=== PATIENT | female | born 1940 | race Caucasian/White ===

== ENCOUNTER 2024-04-05 15:10 | Inpatient (IN) ==
[2024-04-05 16:02] LABS: Basophils # (Auto) 0.01 K/mcL (0.00-0.30); Basophils % (Auto) 0.1 % (0.0-2.0); Eosinophils # (Auto) 0.15 K/mcL (0.00-0.70); Eosinophils % (Auto) 1.1 % (0.0-7.0); Hematocrit 36.1 % (34.1-44.9); Hemoglobin 11.5 g/dL (11.2-15.7); Lymphocytes # (Auto) 1.19 K/mcL (1.50-4.80); Mean Cell Volume 96.5 fL (80.0-100.0); Mean Corpuscular HGB Conc 31.9 g/dL (31.0-36.0); Mean Platelet Volume 9.8 fL (8.8-12.5); Monocytes # (Auto) 0.83 K/mcL (0.10-0.90); Monocytes % (Auto) 6.3 % (1.0-12.0); Platelet Count 403 K/mcL (140-440); RBC 3.74 M/mcL (3.59-5.38); WBC 13.3 K/mcL (4.5-11.0)
[2024-04-05 16:37] LABS: ALT/SGPT 15 U/L (<40); AST/SGOT 28 U/L (<32); Albumin 3.1 gm/dL (3.2-5.2); Albumin/Globulin Ratio 1.1 (1.0-2.3); Alkaline Phosphatase 138 U/L (39-117); Bilirubin,Total 0.3 mg/dL (0.1-1.0); Blood Urea Nitrogen 24 mg/dL (8-23); Calcium 9.5 mg/dL (8.6-10.4); Carbon Dioxide 27 mmol/L (22-30); Chloride 102 mmol/L (96-108); Globulin 2.7 gm/dL (2.2-3.7); Glomerular Filtration Rate 88; Glucose 119 mg/dL (70-105); Potassium 4.5 mmol/L (3.3-5.1); Sodium 138 mmol/L (133-145)
[2024-04-05 17:34] LABS: Appearance,Urine Clear (Clear); Bacteria,Urine 0 /hpf (0); Bilirubin,Urine Negative (Negative); Color,Urine Yellow; Glucose,Urine (UA) Negative (Negative); Ketones,Urine Negative (Negative); Leukocyte Esterase,Urine Trace /uL (Negative); Nitrate,Urine Negative (Negative); PH,Urine 5.5 (5.0-9.0); Protein,Urine Trace mg/dL (Negative); Specific Gravity,Urine 1.025 (1.000-1.035); Urine Blood Trace-intact ery/mcL (Negative); Urine RBC 1 /hpf (0-3); Urine Squamous Epithelial Cell 1 /hpf (0-4); Urine WBC 18 /hpf (0-4); Urobilinogen,Urine Normal
[2024-04-05 19:13] LABS: Thyroid Stimulating Hormone 9.42 uIU/mL (0.27-5.01)
[2024-04-05 19:25] LABS: C-Reactive Protein 9.96 mg/dL (0.03-0.80)
[2024-04-05] MEDS: ACETAMINOPHEN 1,000 MG/100 ML BAG IV ONE (20:06)
[2024-04-05] MEDS ORDERED: SENNOSIDES 1 TABLET PO PRN (20:57)
[2024-04-05] MEDS ORDERED: oxyCODONE IR 5 MG TABLET PO PRN (20:57)
[2024-04-05] MEDS: 0.9 % SODIUM CHLORIDE 10 ML SYRINGE IV SCH (20:58)
[2024-04-05] MEDS: ACETAMINOPHEN 1,000 MG/100 ML BAG IV SCH (20:58)
[2024-04-05] MEDS: IBUPROFEN 600 MG TABLET PO PRN (21:56)
[2024-04-06 06:12] LABS: Basophils # (Auto) 0.02 K/mcL (0.00-0.30); Basophils % (Auto) 0.1 % (0.0-2.0); Eosinophils # (Auto) 0.05 K/mcL (0.00-0.70); Eosinophils % (Auto) 0.3 % (0.0-7.0); Hematocrit 37.5 % (34.1-44.9); Hemoglobin 12.3 g/dL (11.2-15.7); Lymphocytes % (Auto) 5.4 % (15.5-49.0); Mean Cell Volume 95.4 fL (80.0-100.0); Mean Corpuscular HGB Conc 32.8 g/dL (31.0-36.0); Mean Platelet Volume 9.8 fL (8.8-12.5); Monocytes # (Auto) 0.71 K/mcL (0.10-0.90); Monocytes % (Auto) 4.8 % (1.0-12.0); Neutrophils % (Auto) 87.7 % (38.0-78.0); Platelet Count 392 K/mcL (140-440); RBC 3.93 M/mcL (3.59-5.38); Red Cell Distribution Width 13.7 % (11.5-14.5); WBC 14.8 K/mcL (4.5-11.0)
[2024-04-06 06:39] LABS: ALT/SGPT 14 U/L (<40); AST/SGOT 31 U/L (<32); Albumin 2.7 gm/dL (3.2-5.2); Alkaline Phosphatase 145 U/L (39-117); Bilirubin,Direct < 0.2 mg/dL (0-0.3); Bilirubin,Total 0.4 mg/dL (0.1-1.0); Blood Urea Nitrogen 19 mg/dL (8-23); Calcium 9.5 mg/dL (8.6-10.4); Carbon Dioxide 26 mmol/L (22-30); Chloride 99 mmol/L (96-108); Globulin 2.8 gm/dL (2.2-3.7); Glomerular Filtration Rate 88; Glucose 114 mg/dL (70-105); Lactate Dehydrogenase 265 U/L (135-225); Phosphorous 2.8 mg/dL (2.5-4.5); Potassium 4.4 mmol/L (3.3-5.1); Sodium 134 mmol/L (133-145); Triglycerides 120 mg/dL (<150); Uric Acid 2.9 mg/dL (2.5-8.0)
[2024-04-06] MEDS: MULTIVIT,THER IRON,CA,FA & MIN 1 TABLET PO SCH (09:41)
[2024-04-06] MEDS: LISINOPRIL 20 MG TABLET PO SCH (09:41)
[2024-04-06] MEDS: LEVOTHYROXINE SODIUM 112 MCG TABLET PO SCH (09:41)
[2024-04-06] MEDS: ENOXAPARIN 40 MG/0.4 ML SYRINGE SQ SCH (09:42)
[2024-04-06] MEDS: MIRTAZAPINE 15 MG TABLET PO SCH (09:42)
[2024-04-06 11:33] LABS: Free T4 (Free Thyroxine) 1.15 ng/dL (0.93-1.70)
[2024-04-06] MEDS: LORazepam 1 MG TABLET PO PRN (12:46)
[2024-04-06] MEDS ORDERED: GADOBENATE DIMEGLUMINE 15 ML/VIAL IV ONE (13:57)
[2024-04-06] MEDS: oxyCODONE IR 5 MG TABLET PO PRN (20:10)
[2024-04-07 08:26] LABS: Basophils # (Auto) 0.02 K/mcL (0.00-0.30); Basophils % (Auto) 0.2 % (0.0-2.0); Eosinophils # (Auto) 0.12 K/mcL (0.00-0.70); Eosinophils % (Auto) 0.9 % (0.0-7.0); Hemoglobin 12.7 g/dL (11.2-15.7); Lymphocytes # (Auto) 0.78 K/mcL (1.50-4.80); Lymphocytes % (Auto) 6.1 % (15.5-49.0); Mean Cell Volume 95.1 fL (80.0-100.0); Mean Corpuscular HGB Conc 32.6 g/dL (31.0-36.0); Mean Platelet Volume 9.7 fL (8.8-12.5); Monocytes # (Auto) 0.55 K/mcL (0.10-0.90); Monocytes % (Auto) 4.3 % (1.0-12.0); Neutrophils % (Auto) 84.1 % (38.0-78.0); Platelet Count 436 K/mcL (140-440); Red Cell Distribution Width 13.6 % (11.5-14.5); WBC 12.8 K/mcL (4.5-11.0)
[2024-04-07 08:47] LABS: ALT/SGPT 15 U/L (<40); AST/SGOT 27 U/L (<32); Albumin 2.7 gm/dL (3.2-5.2); Albumin/Globulin Ratio 1.1 (1.0-2.3); Alkaline Phosphatase 142 U/L (39-117); Bilirubin,Direct < 0.2 mg/dL (0-0.3); Bilirubin,Total 0.3 mg/dL (0.1-1.0); Blood Urea Nitrogen 14 mg/dL (8-23); Calcium 9.3 mg/dL (8.6-10.4); Carbon Dioxide 29 mmol/L (22-30); Chloride 99 mmol/L (96-108); Globulin 2.5 gm/dL (2.2-3.7); Glomerular Filtration Rate 88; Glucose 93 mg/dL (70-105); Lactate Dehydrogenase 224 U/L (135-225); Phosphorous 2.6 mg/dL (2.5-4.5); Potassium 3.8 mmol/L (3.3-5.1); Sodium 135 mmol/L (133-145); Triglycerides 158 mg/dL (<150); Uric Acid 3.1 mg/dL (2.5-8.0)
[2024-04-07] MEDS: ONDANSETRON 4 MG/2 ML VIAL IV PRN (13:00)
[2024-04-07] MEDS: oxyCODONE IR 5 MG TABLET PO SCH (21:12)
[2024-04-08] MEDS: CHOLESTYRAMINE/ASPARTAME 4 GM POWD.PACK PO SCH (11:20)
[2024-04-08] MEDS: oxyCODONE IR 5 MG TABLET PO PRN (16:26)
[2024-04-09 06:00] LABS: Basophils # (Auto) 0.04 K/mcL (0.00-0.30); Basophils % (Auto) 0.3 % (0.0-2.0); Eosinophils # (Auto) 0.27 K/mcL (0.00-0.70); Eosinophils % (Auto) 2.2 % (0.0-7.0); Hematocrit 36.9 % (34.1-44.9); Hemoglobin 11.7 g/dL (11.2-15.7); Lymphocytes # (Auto) 1.33 K/mcL (1.50-4.80); Lymphocytes % (Auto) 10.6 % (15.5-49.0); Mean Cell Volume 96.9 fL (80.0-100.0); Mean Corpuscular HGB Conc 31.7 g/dL (31.0-36.0); Mean Platelet Volume 9.6 fL (8.8-12.5); Monocytes # (Auto) 0.67 K/mcL (0.10-0.90); Monocytes % (Auto) 5.4 % (1.0-12.0); Platelet Count 443 K/mcL (140-440); RBC 3.81 M/mcL (3.59-5.38); WBC 12.5 K/mcL (4.5-11.0)
[2024-04-09 06:23] LABS: ALT/SGPT 26 U/L (<40); AST/SGOT 52 U/L (<32); Albumin 2.8 gm/dL (3.2-5.2); Albumin/Globulin Ratio 1.2 (1.0-2.3); Alkaline Phosphatase 174 U/L (39-117); Bilirubin,Direct < 0.2 mg/dL (0-0.3); Bilirubin,Total 0.2 mg/dL (0.1-1.0); Blood Urea Nitrogen 21 mg/dL (8-23); Calcium 9.3 mg/dL (8.6-10.4); Carbon Dioxide 29 mmol/L (22-30); Chloride 103 mmol/L (96-108); Globulin 2.3 gm/dL (2.2-3.7); Glomerular Filtration Rate 88; Glucose 88 mg/dL (70-105); Lactate Dehydrogenase 478 U/L (135-225); Phosphorous 2.5 mg/dL (2.5-4.5); Potassium 4.4 mmol/L (3.3-5.1); Sodium 139 mmol/L (133-145); Triglycerides 114 mg/dL (<150)
[2024-04-09] MEDS: LEVOTHYROXINE SODIUM 112 MCG TABLET PO SCH (07:54)
[2024-04-10] MEDS ORDERED: oxyCODONE IR 5 MG TABLET PO PRN (15:18)
[2024-04-10] MEDS: oxyCODONE IR 5 MG TABLET PO ONE (15:28)
[2024-04-11] MEDS: LEVOTHYROXINE SODIUM 112 MCG TABLET PO SCH (05:37)
[2024-04-11 06:56] LABS: Basophils # (Auto) 0.05 K/mcL (0.00-0.30); Basophils % (Auto) 0.4 % (0.0-2.0); Eosinophils # (Auto) 0.23 K/mcL (0.00-0.70); Eosinophils % (Auto) 1.9 % (0.0-7.0); Hematocrit 36.5 % (34.1-44.9); Hemoglobin 11.8 g/dL (11.2-15.7); Lymphocytes # (Auto) 1.07 K/mcL (1.50-4.80); Lymphocytes % (Auto) 8.8 % (15.5-49.0); Mean Cell Volume 97.3 fL (80.0-100.0); Mean Corpuscular HGB Conc 32.3 g/dL (31.0-36.0); Mean Platelet Volume 9.6 fL (8.8-12.5); Monocytes # (Auto) 0.63 K/mcL (0.10-0.90); Monocytes % (Auto) 5.2 % (1.0-12.0); Neutrophils % (Auto) 79.2 % (38.0-78.0); Platelet Count 480 K/mcL (140-440); RBC 3.75 M/mcL (3.59-5.38); Red Cell Distribution Width 14.1 % (11.5-14.5); WBC 12.1 K/mcL (4.5-11.0)
[2024-04-11] MEDS: CHOLESTYRAMINE/ASPARTAME 4 GM POWD.PACK PO SCH (09:18)
[2024-04-11] MEDS: MULTIVIT,THER IRON,CA,FA & MIN 1 TABLET PO SCH (12:22)
== END 2024-04-11 14:58 | DRG 91 ==
LOC: ED 15:10 → MEDSUR 20:37
PROVIDERS: ADMIT Internal Medicine; ATTEND Internal Medicine

== ENCOUNTER 2024-10-30 10:53 | Inpatient (IN) ==
[2024-10-30] MEDS: LIDOCAINE 4% TOP PATCH TOPICAL ONE (11:59)
[2024-10-30] MEDS: morphine 2 MG/ML VIAL IV ONE ×2 (12:12→12:52)
[2024-10-30] MEDS: 0.9 % SODIUM CHLORIDE 1,000 ML IV ONE (12:14)
[2024-10-30] MEDS: KETOROLAC 15 MG/ML VIAL IV ONE (12:52)
[2024-10-30 13:18] LABS: Basophils # (Auto) 0.02 K/mcL (0.00-0.30); Basophils % (Auto) 0.3 % (0.0-2.0); Eosinophils # (Auto) 0.04 K/mcL (0.00-0.70); Eosinophils % (Auto) 0.6 % (0.0-7.0); Hematocrit 45.3 % (34.1-44.9); Hemoglobin 14.4 g/dL (11.2-15.7); Lymphocytes # (Auto) 0.59 K/mcL (1.50-4.80); Lymphocytes % (Auto) 8.5 % (15.5-49.0); Mean Cell Volume 98.7 fL (80.0-100.0); Mean Corpuscular HGB Conc 31.8 g/dL (31.0-36.0); Mean Platelet Volume 10.9 fL (8.8-12.5); Monocytes # (Auto) 0.55 K/mcL (0.10-0.90); Monocytes % (Auto) 7.9 % (1.0-12.0); Neutrophils % (Auto) 82.6 % (38.0-78.0); Platelet Count 228 K/mcL (140-440); RBC 4.59 M/mcL (3.59-5.38); Red Cell Distribution Width 15.6 % (11.5-14.5)
[2024-10-30] MEDS: HYDROmorphone 0.5 MG/0.5 ML SYRINGE IV ONE (13:53)
[2024-10-30 14:31] LABS: Blood Urea Nitrogen 20 mg/dL (8-23); Calcium 9.2 mg/dL (8.6-10.4); Carbon Dioxide 26 mmol/L (22-30); Chloride 105 mmol/L (96-108); Glomerular Filtration Rate 88; Glucose 90 mg/dL (70-105); Potassium 3.6 mmol/L (3.3-5.1); Sodium 142 mmol/L (133-145)
[2024-10-30] MEDS ORDERED: fentaNYL 100 MCG/2 ML VIAL ONE (14:49)
[2024-10-30] MEDS ORDERED: PROPOFOL 200 MG/20 ML VIAL IV ONE (14:49)
[2024-10-30] MEDS ORDERED: ONDANSETRON 4 MG/2 ML VIAL ONE (15:02)
[2024-10-30] MEDS ORDERED: DEXAMETHASONE 10 MG/ML VIAL ONE (15:02)
[2024-10-30] MEDS ORDERED: GLYCOPYRROLATE 0.2 MG/ML VIAL IV ONE (15:02)
[2024-10-30] MEDS: ceFAZolin 2 GM in DEXTROSE 5% IN WATER 50 ML IV SCH (16:00)
[2024-10-30] MEDS ORDERED: TRANEXAMIC ACID 1,000 MG/10 ML VIAL ONE (16:03)
[2024-10-30] MEDS ORDERED: ROCURONIUM 10 MG/ML ML IV ONE (16:03)
[2024-10-30] MEDS ORDERED: SUGAMMADEX SODIUM 200 MG/2 ML VIAL IV ONE (16:03)
[2024-10-30] MEDS ORDERED: PHENYLephrine 1 MG/10 ML SYRINGE (ANEST) ONE (16:13)
[2024-10-30] MEDS ORDERED: MAGNESIUM SULFATE 2 GM/50 ML BAG IV ONE (16:32)
[2024-10-30] MEDS: VANCOMYCIN 1 GM VIAL TOPICAL SCH (16:56)
[2024-10-30 17:00] LABS: INR 1.1 (0.9-1.1); Prothrombin Time 15.5 sec (11.9-14.5)
[2024-10-30] MEDS ORDERED: BENZOCAINE/MENTHOL 1 LOZENGE PO PRN (17:17)
[2024-10-30] MEDS: ROPIVACAINE HCL/PF 20 ML VIAL IJ ONE (17:19)
[2024-10-30] MEDS ORDERED: ceFAZolin 2 GM in DEXTROSE 5% IN WATER 50 ML IV SCH (17:30)
[2024-10-30] MEDS ORDERED: oxyCODONE IR 5 MG TABLET PO PRN (18:56)
[2024-10-30] MEDS ORDERED: NON FORMULARY MEDICATION 1 DOSE MISCELL (Banana Flakes-T-Galactooligos. [Banatrol Plus] po PO PRN (18:56)
[2024-10-30] MEDS ORDERED: ONDANSETRON 4 MG/2 ML VIAL IV PRN (18:56)
[2024-10-30] MEDS: LACTATED RINGERS 1,000 ML IV SCH (19:00)
[2024-10-30] MEDS: SENNOSIDES 1 TABLET PO SCH (20:43)
[2024-10-30] MEDS: morphine 4 MG/ML VIAL IV PRN (20:44)
[2024-10-30] MEDS: MELATONIN 3 MG TABLET PO SCH (20:46)
[2024-10-31 00:51] LABS: Appearance,Urine Clear (Clear); Bilirubin,Urine Negative (Negative); Calcium Oxalate Crystals,Urine Few /hpf; Color,Urine Yellow; Glucose,Urine (UA) Negative (Negative); Ketones,Urine Negative (Negative); Leukocyte Esterase,Urine Negative /uL (Negative); Nitrate,Urine Negative (Negative); PH,Urine 5.5 (5.0-9.0); Protein,Urine 30 mg/dL (Negative); Specific Gravity,Urine 1.025 (1.000-1.035); Urine Blood Negative ery/mcL (Negative); Urine Hyaline Cast 4 /lph (0-2); Urine RBC 12 /hpf (0-3); Urine Squamous Epithelial Cell 4 /hpf (0-4); Urine WBC 0 /hpf (0-4); Urobilinogen,Urine Normal
[2024-10-31] MEDS: ceFAZolin 1 GM VIAL IV SCH (01:06)
[2024-10-31] MEDS: 0.9 % SODIUM CHLORIDE 10 ML SYRINGE IV SCH (01:06)
[2024-10-31] MEDS: LACTATED RINGERS 1,000 ML IV SCH (01:07)
[2024-10-31 07:16] LABS: ALT/SGPT 80 U/L (<40); AST/SGOT 62 U/L (<32); Albumin/Globulin Ratio 1.7 (1.0-2.3); Alkaline Phosphatase 164 U/L (39-117); Bilirubin,Total 0.6 mg/dL (0.1-1.0); Blood Urea Nitrogen 25 mg/dL (8-23); Calcium 9.1 mg/dL (8.6-10.4); Carbon Dioxide 25 mmol/L (22-30); Chloride 104 mmol/L (96-108); Globulin 1.8 gm/dL (2.2-3.7); Glomerular Filtration Rate 67; Glucose 147 mg/dL (70-105); Sodium 139 mmol/L (133-145)
[2024-10-31 07:24] LABS: Basophils # (Auto) 0.03 K/mcL (0.00-0.30); Basophils % (Auto) 0.2 % (0.0-2.0); Eosinophils # (Auto) 0 K/mcL (0.00-0.70); Eosinophils % (Auto) 0 % (0.0-7.0); Hematocrit 40.2 % (34.1-44.9); Lymphocytes # (Auto) 0.73 K/mcL (1.50-4.80); Lymphocytes % (Auto) 5.6 % (15.5-49.0); Mean Corpuscular HGB Conc 32.3 g/dL (31.0-36.0); Mean Platelet Volume 11.5 fL (8.8-12.5); Monocytes # (Auto) 1.07 K/mcL (0.10-0.90); Monocytes % (Auto) 8.1 % (1.0-12.0); Neutrophils % (Auto) 85.6 % (38.0-78.0); Platelet Count 238 K/mcL (140-440); Red Cell Distribution Width 15.9 % (11.5-14.5); WBC 13.1 K/mcL (4.5-11.0)
[2024-10-31] MEDS: LISINOPRIL 20 MG TABLET PO SCH ×2 (08:32→20:22)
[2024-10-31] MEDS: MULTIVIT,THER IRON,CA,FA & MIN 1 TABLET PO SCH ×2 (08:33→20:23)
[2024-10-31] MEDS: LEVOTHYROXINE SODIUM 112 MCG TABLET PO SCH (08:33)
[2024-10-31] MEDS: MIRTAZAPINE 15 MG TABLET PO SCH ×2 (08:33→20:23)
[2024-10-31] MEDS: GABAPENTIN 100 MG CAPSULE PO SCH ×2 (08:33→20:23)
[2024-10-31] MEDS: HYDROcodone/APAP 5/325MG TABLET PO PRN (08:33)
[2024-10-31] MEDS: ENOXAPARIN 40 MG/0.4 ML SYRINGE SQ SCH (08:34)
[2024-10-31] MEDS ORDERED: CARBAMIDE PEROXIDE 6.5% OTIC SCH (09:00)
[2024-10-31] MEDS ORDERED: NON FORMULARY MEDICATION 1 DOSE MISCELL (Krill Oil 500 mg capsule) PO SCH (09:00)
[2024-10-31] MEDS: [UNRECOGNIZED DRUG - OTHER] PO SCH (09:00)
[2024-10-31] MEDS: CHOLESTYRAMINE/ASPARTAME 4 GM POWD.PACK PO SCH (11:48)
[2024-10-31] MEDS: DICLOFENAC SODIUM 2.5 ML DROPS OP SCH (11:48)
[2024-10-31] MEDS ORDERED: ENOXAPARIN 40 MG/0.4 ML SYRINGE SQ SCH (21:00)
[2024-10-31] MEDS ORDERED: LISINOPRIL 20 MG TABLET PO SCH (21:00)
[2024-10-31] MEDS: LORazepam 1 MG TABLET PO PRN (22:01)
[2024-10-31] MEDS: oxyCODONE IR 5 MG TABLET PO PRN (22:01)
[2024-11-01 06:27] LABS: Basophils # (Auto) 0.03 K/mcL (0.00-0.30); Basophils % (Auto) 0.4 % (0.0-2.0); Eosinophils # (Auto) 0.09 K/mcL (0.00-0.70); Eosinophils % (Auto) 1.1 % (0.0-7.0); Hematocrit 40.2 % (34.1-44.9); Hemoglobin 13.1 g/dL (11.2-15.7); Lymphocytes # (Auto) 0.79 K/mcL (1.50-4.80); Lymphocytes % (Auto) 9.4 % (15.5-49.0); Mean Cell Volume 96.6 fL (80.0-100.0); Mean Corpuscular HGB Conc 32.6 g/dL (31.0-36.0); Monocytes # (Auto) 0.93 K/mcL (0.10-0.90); Neutrophils % (Auto) 77.9 % (38.0-78.0); Platelet Count 238 K/mcL (140-440); RBC 4.16 M/mcL (3.59-5.38); Red Cell Distribution Width 15.7 % (11.5-14.5); WBC 8.4 K/mcL (4.5-11.0)
[2024-11-01 07:25] LABS: ALT/SGPT 31 U/L (<40); AST/SGOT 78 U/L (<32); Albumin 3.2 gm/dL (3.2-5.2); Albumin/Globulin Ratio 1.5 (1.0-2.3); Alkaline Phosphatase 164 U/L (39-117); Bilirubin,Total 0.7 mg/dL (0.1-1.0); Blood Urea Nitrogen 36 mg/dL (8-23); Calcium 9.4 mg/dL (8.6-10.4); Carbon Dioxide 27 mmol/L (22-30); Chloride 101 mmol/L (96-108); Globulin 2.1 gm/dL (2.2-3.7); Glomerular Filtration Rate 45; Glucose 100 mg/dL (70-105); Potassium 4.3 mmol/L (3.3-5.1); Sodium 137 mmol/L (133-145)
[2024-11-01] MEDS: VITAMIN D3 125 MCG TABLET PO SCH (08:26)
[2024-11-01] MEDS ORDERED: [UNRECOGNIZED DRUG - OTHER] PO SCH (09:00)
[2024-11-01] MEDS: ACETAMINOPHEN 325 MG TABLET PO PRN (14:04)
[2024-11-01] MEDS: LACTATED RINGERS 1,000 ML IV SCH (15:10)
[2024-11-01 15:18] LABS: C-Reactive Protein 5.96 mg/dL (0.03-0.80)
[2024-11-01 15:44] LABS: Appearance,Urine Clear (Clear); Bilirubin,Urine Negative (Negative); Calcium Oxalate Crystals,Urine Mod /hpf; Color,Urine Yellow; Glucose,Urine (UA) Negative (Negative); Ketones,Urine Negative (Negative); Leukocyte Esterase,Urine Negative /uL (Negative); Nitrate,Urine Negative (Negative); PH,Urine 5.5 (5.0-9.0); Protein,Urine 100 mg/dL (Negative); Specific Gravity,Urine >= 1.030 (1.000-1.035); Urine Blood Negative ery/mcL (Negative); Urine RBC 5 /hpf (0-3); Urine Squamous Epithelial Cell 4 /hpf (0-4); Urine Transitional Epi Cells 3 /hpf (0-2); Urine WBC 4 /hpf (0-4); Urobilinogen,Urine Normal
[2024-11-01] MEDS: HEPARIN 5,000 UNIT/ML VIAL SQ SCH (21:31)
[2024-11-02 06:19] LABS: Basophils # (Auto) 0.02 K/mcL (0.00-0.30); Basophils % (Auto) 0.1 % (0.0-2.0); Eosinophils # (Auto) 0.02 K/mcL (0.00-0.70); Eosinophils % (Auto) 0.1 % (0.0-7.0); Hematocrit 36.4 % (34.1-44.9); Hemoglobin 11.7 g/dL (11.2-15.7); Lymphocytes # (Auto) 0.66 K/mcL (1.50-4.80); Lymphocytes % (Auto) 3.7 % (15.5-49.0); Mean Cell Volume 97.8 fL (80.0-100.0); Mean Corpuscular HGB Conc 32.1 g/dL (31.0-36.0); Mean Platelet Volume 11.6 fL (8.8-12.5); Monocytes # (Auto) 1.46 K/mcL (0.10-0.90); Monocytes % (Auto) 8.3 % (1.0-12.0); Neutrophils % (Auto) 87.5 % (38.0-78.0); Platelet Count 181 K/mcL (140-440); RBC 3.72 M/mcL (3.59-5.38); Red Cell Distribution Width 15.7 % (11.5-14.5); WBC 17.7 K/mcL (4.5-11.0)
[2024-11-02 06:43] LABS: ALT/SGPT 24 U/L (<40); AST/SGOT 85 U/L (<32); Albumin 2.8 gm/dL (3.2-5.2); Albumin/Globulin Ratio 1.5 (1.0-2.3); Alkaline Phosphatase 155 U/L (39-117); Bilirubin,Total 0.8 mg/dL (0.1-1.0); Blood Urea Nitrogen 32 mg/dL (8-23); Calcium 9.2 mg/dL (8.6-10.4); Carbon Dioxide 25 mmol/L (22-30); Chloride 101 mmol/L (96-108); Globulin 1.9 gm/dL (2.2-3.7); Glomerular Filtration Rate 67; Glucose 91 mg/dL (70-105); Sodium 136 mmol/L (133-145)
[2024-11-02] MEDS: FUROSEMIDE 20 MG/2 ML VIAL IV SCH ×2 (09:34→19:21)
[2024-11-02] MEDS: POLYETHYLENE GLYCOL 3350 17 GM PACKET PO PRN (21:01)
[2024-11-03 07:03] LABS: Basophils # (Auto) 0.05 K/mcL (0.00-0.30); Basophils % (Auto) 0.3 % (0.0-2.0); Eosinophils # (Auto) 0.08 K/mcL (0.00-0.70); Eosinophils % (Auto) 0.5 % (0.0-7.0); Hemoglobin 12.4 g/dL (11.2-15.7); Lymphocytes # (Auto) 0.93 K/mcL (1.50-4.80); Lymphocytes % (Auto) 5.5 % (15.5-49.0); Mean Cell Volume 96.9 fL (80.0-100.0); Mean Corpuscular HGB Conc 32.6 g/dL (31.0-36.0); Monocytes % (Auto) 9.4 % (1.0-12.0); Neutrophils % (Auto) 83.9 % (38.0-78.0); Platelet Count 220 K/mcL (140-440); RBC 3.92 M/mcL (3.59-5.38); Red Cell Distribution Width 15.6 % (11.5-14.5)
[2024-11-03 07:20] LABS: ALT/SGPT 20 U/L (<40); AST/SGOT 54 U/L (<32); Albumin 2.6 gm/dL (3.2-5.2); Albumin/Globulin Ratio 1.2 (1.0-2.3); Alkaline Phosphatase 174 U/L (39-117); Bilirubin,Total 0.8 mg/dL (0.1-1.0); Blood Urea Nitrogen 39 mg/dL (8-23); Calcium 9.2 mg/dL (8.6-10.4); Carbon Dioxide 28 mmol/L (22-30); Chloride 100 mmol/L (96-108); Globulin 2.1 gm/dL (2.2-3.7); Glomerular Filtration Rate 58; Glucose 86 mg/dL (70-105); Potassium 3.8 mmol/L (3.3-5.1); Sodium 137 mmol/L (133-145)
[2024-11-03 13:36] LABS: Band Neutrophils % 2 % (0-10); Lymphocytes % 4 % (15-49); Monocytes % (Manual) 3 % (1-12); Platelet Estimate NORMAL (Normal); RBC Morphology NORMAL (Normal); Segmented Neutrophils % 91 % (38-78)
[2024-11-04 06:17] LABS: Basophils # (Auto) 0.04 K/mcL (0.00-0.30); Basophils % (Auto) 0.3 % (0.0-2.0); Eosinophils # (Auto) 0.13 K/mcL (0.00-0.70); Eosinophils % (Auto) 0.9 % (0.0-7.0); Hematocrit 36.2 % (34.1-44.9); Hemoglobin 11.6 g/dL (11.2-15.7); Lymphocytes # (Auto) 0.82 K/mcL (1.50-4.80); Lymphocytes % (Auto) 5.7 % (15.5-49.0); Mean Cell Volume 98.4 fL (80.0-100.0); Mean Platelet Volume 11.2 fL (8.8-12.5); Monocytes # (Auto) 1.19 K/mcL (0.10-0.90); Monocytes % (Auto) 8.2 % (1.0-12.0); Neutrophils % (Auto) 84.6 % (38.0-78.0); Platelet Count 245 K/mcL (140-440); RBC 3.68 M/mcL (3.59-5.38); Red Cell Distribution Width 15.5 % (11.5-14.5); WBC 14.5 K/mcL (4.5-11.0)
[2024-11-04 06:42] LABS: ALT/SGPT 20 U/L (<40); AST/SGOT 45 U/L (<32); Albumin 2.6 gm/dL (3.2-5.2); Albumin/Globulin Ratio 1.4 (1.0-2.3); Alkaline Phosphatase 250 U/L (39-117); Bilirubin,Direct 0.4 mg/dL (<0.3); Bilirubin,Total 0.6 mg/dL (0.1-1.0); Blood Urea Nitrogen 46 mg/dL (8-23); C-Reactive Protein 8.69 mg/dL (0.03-0.80); Calcium 8.9 mg/dL (8.6-10.4); Carbon Dioxide 29 mmol/L (22-30); Chloride 104 mmol/L (96-108); Globulin 1.8 gm/dL (2.2-3.7); Glomerular Filtration Rate 58; Glucose 107 mg/dL (70-105); Lactate Dehydrogenase 306 U/L (135-225); Phosphorous 2.9 mg/dL (2.5-4.5); Potassium 4.1 mmol/L (3.3-5.1); Sodium 140 mmol/L (133-145); Triglycerides 72 mg/dL (<150); Uric Acid 4.6 mg/dL (2.5-8.0)
[2024-11-04 13:14] VITALS: TEMP 97.8; O2SAT 95
== END 2024-11-04 13:47 | DRG 522 ==
LOC: ED 10:53 → SSSU 15:15 → ICU 18:28 → MEDSUR 10-31 14:30
PROVIDERS: ADMIT Student in an Organized Health Care Education/Training Program; ATTEND Internal Medicine
PROC: HEMIHIP (2024-10-30 15:55)